=== PATIENT | female | born 1970 | race African-American/Black ===

== ENCOUNTER → 2018-05-28 | Outpatient (CLI) | payer OTHER ==
[~2018-05-28] MED LIST: ADVAIR HFA 230M1 AER INH; ALBUTEROL2.5 MG/31 INH; CLARITIN10 MG PO; COMBIVENT INH; DUONEB 2.5-0.5 M3 ML INH; IRON325 PO; LEVAQUIN 500 M500 M2 PO; NORVASC10 MG PO; PREDNISONE 20 M20 M1 PO; PREDNISONE 5 MG5 M1 PO; VENTOLIN HFA 1818 GM INH; VENTOLIN HFA INH8 GM; VENTOLIN17 GM INH
== END ==
LOC: RAD 01:44
DX: N63.10 Unspecified lump in the right breast, unspecified quadrant (principal); R92.8 Other abnormal and inconclusive findings on diagnostic imaging of breast

== ENCOUNTER → 2019-01-10 | Outpatient (CLI) | payer OTHER | LOC: RAD 01:33 | DX: N63.10 Unspecified lump in the right breast, unspecified quadrant (principal); R92.2 Inconclusive mammogram ==

== ENCOUNTER → 2020-05-29 | Outpatient (CLI) | payer OTHER ==
[2020-05-29 10:14] LABS: ABSOLUTE NEUTROPHILS 5.5 thou/uL (1.4-8.2); BASOPHILS 0.7 % (0.0-2.0); EOSINOPHILS 7.8 % (0.0-3.0); HEMATOCRIT 40.6 % (37.0-47.0); HEMOGLOBIN 13.6 gm/dL (12.0-15.0); LYMPHOCYTES 16.7 % (24.0-44.0); MCH 27.9 pg (26.0-34.0); MCHC 33.4 g/dL (28.0-37.0); MCV 83.4 fL (80.0-100.0); PLATELET COUNT 273 thou/uL (150-400); POLYS 69.8 % (36.0-66.0); RBC 4.87 mil/uL (4.20-5.00); RDW 18.3 % (10.5-14.5); WBC 7.9 thou/uL (4.0-11.0)
[2020-05-29 10:31] LABS: ALBUMIN 3.8 g/dL (3.4-5.0); ANION GAP 9 mmol/L (7-16); BUN 8 mg/dL (7-18); CALCIUM 9.3 mg/dL (8.5-10.1); CHLORIDE 102 mmol/L (98-107); CHOLESTEROL 237 mg/dL (<200); CO2 26 mmol/L (21-32); CREATININE 0.8 mg/dL (0.6-1.0); GLUCOSE 94 mg/dL (74-106); HDL CHOLESTEROL 53 mg/dL (>40); LDL CHOLESTEROL 165 mg/dL (<100); POTASSIUM 3.9 mmol/L (3.5-5.1); SGOT 16 U/L (15-37); SGPT 31 U/L (30-65); SODIUM 137 mmol/L (136-145); TC:HDL 4.5 Ratio (Not establshd); TOTAL BILIRUBIN 0.3 mg/dL (0.2-1.0); TRIGLYCERIDE 99 mg/dL (<150); VLDL 20 mg/dL (<40)
[2020-05-30 02:36] LABS: GLYCOHEMOGLOBIN (HGB A1C) 5.8 % (4.8-5.6)
== END ==
LOC: LABMALL 09:44
PROVIDERS: ATTEND Family Medicine
DX: Z00.00 Encounter for general adult medical examination without abnormal findings (principal)